=== PATIENT | female | born 1970 | race Caucasian/White ===

== ENCOUNTER 2022-03-05 14:06 | Outpatient (CLI) | payer OTHER, SELFPAY | END 2022-03-05 14:07 | disposition home or self-care (01) | LOC: NFLDREF 03-16 10:19 | PROVIDERS: Visit Provider Family Medicine | DX: L40.9 Psoriasis, unspecified (principal); Z79.899 Other long term (current) drug therapy | CPT/HCPCS: 87086; 87186 ==

== ENCOUNTER 2022-06-22 07:45 | Outpatient (CLI) | payer OTHER, SELFPAY | END 2022-06-22 07:46 | disposition home or self-care (01) | LOC: NFLDREF 12:18 | PROVIDERS: PCP Family Medicine; Referring Provider Family Medicine; Visit Provider Family Medicine | DX: E78.5 Hyperlipidemia, unspecified (principal); R73.03 Prediabetes | CPT/HCPCS: 80053; 80061 ==

== ENCOUNTER 2023-07-13 07:38 | Outpatient (CLI) | payer BC, SELFPAY | END 2023-07-13 07:39 | disposition home or self-care (01) | LOC: NFLDREF 07-15 07:38 | PROVIDERS: PCP Family Medicine; Referring Provider Family Medicine; Visit Provider Family Medicine | DX: K76.0 Fatty (change of) liver, not elsewhere classified (principal); E78.5 Hyperlipidemia, unspecified; R73.03 Prediabetes | CPT/HCPCS: 80053; 80061 ==

== ENCOUNTER 2023-09-15 12:05 | Outpatient (CLI) | payer OTHER, SELFPAY | END 2023-09-15 12:06 | disposition home or self-care (01) | LOC: NFLDREF 12:06 | PROVIDERS: PCP Family Medicine; Visit Provider Family Medicine | DX: R76.12 Nonspecific reaction to cell mediated immunity measurement of gamma interferon antigen response without active tuberculosis (principal); R73.03 Prediabetes | CPT/HCPCS: 80053; 80061 ==

== ENCOUNTER 2023-11-17 08:44 | Outpatient (CLI) | payer OTHER, SELFPAY ==
--- NOTE | 2023-11-17 10:03 | W.ANESCHARGE ---
Anesthesia Charges Start Date/Time Anesthesia Start Date: 11/17/23 Anesthesia Start Time: 09:37 Stop Date/Time Anesthesia Stop Date: 11/17/23 Anesthesia Stop Time: 10:04
--- NOTE | 2023-11-17 10:08 | W.ANESCHARGE ---
Anesthesia Charges Start Date/Time Anesthesia Start Date: 11/17/23 Anesthesia Start Time: 09:37 Stop Date/Time Anesthesia Stop Date: 11/17/23 Anesthesia Stop Time: 10:04
== END 2023-11-17 08:45 | disposition home or self-care (01) ==
LOC: OP CLINIC 08:44
PROVIDERS: PCP Family Medicine; Visit Provider Surgery
DX: Z12.11 Encounter for screening for malignant neoplasm of colon (principal); Z86.010 Personal history of colon polyps
CPT/HCPCS: 00812; 45378; J2704

== ENCOUNTER 2023-12-23 14:52 | Outpatient (CLI) | payer OTHER, SELFPAY ==
--- NOTE | 2023-12-23 15:00 | CRLHL7_ITS ---
For Patients: As a result of the Century Cures Act, medical imaging exams and procedure reports are released immediately into your electronic medical record. You may view this report before your referring provider. If you have questions, please contact your health care provider. BILATERAL SCREENING MAMMOGRAM WITH COMPUTER-AIDED DETECTION AND TOMOSYNTHESIS TECHNIQUE: CC and MLO views were obtained. These mammographic images have been obtained using full-field digital technique. These mammographic images were interpreted with the benefit of computer-aided detection. Breast Tomosynthesis was used in this interpretation. COMPARISON FILM: 07/20/21, 04/05/18, 10/05/16. FINDINGS: There are scattered areas of fibroglandular density. IMPRESSION: There is no radiographic evidence for malignancy. ASSESSMENT: BI-RADS Category 1: Negative RECOMMENDATION: Routine screening mammogram in 1 year. A lay language report of this examination will be provided to the patient. Long Foster M.D. Diagnostic Radiologist [email or web address] SP/Dictated by: Long Foster MD @ 12/26/2023 10:43:00 AM (Electronically Signed)
== END 2023-12-23 14:53 | disposition home or self-care (01) ==
LOC: MAMMO 14:52
PROVIDERS: PCP Family Medicine; Visit Provider Family Medicine
DX: Z12.31 Encounter for screening mammogram for malignant neoplasm of breast (principal)
CPT/HCPCS: 77063; 77067

== ENCOUNTER 2024-08-15 07:42 | Outpatient (CLI) | payer OTHER, SELFPAY | END 2024-08-15 07:43 | disposition home or self-care (01) | LOC: NFLDREF 08-22 03:28 | PROVIDERS: PCP Family Medicine; Referring Provider Family Medicine; Visit Provider Family Medicine | DX: E78.5 Hyperlipidemia, unspecified (principal); K76.0 Fatty (change of) liver, not elsewhere classified; R73.03 Prediabetes | CPT/HCPCS: 80053; 80061 ==

== ENCOUNTER 2024-08-21 12:53 | Outpatient (CLI) | payer OTHER, SELFPAY ==
[2024-08-24 02:34] LABS: HPV Source Cervical/Vag; HPV, High Risk by TMA Not Detected
== END 2024-08-21 12:54 | disposition home or self-care (01) ==
PROVIDERS: PCP Family Medicine; Visit Provider Family Medicine
DX: N30.00 Acute cystitis without hematuria (principal); B96.89 Other specified bacterial agents as the cause of diseases classified elsewhere; Z11.51 Encounter for screening for human papillomavirus (HPV); Z12.4 Encounter for screening for malignant neoplasm of cervix
CPT/HCPCS: 87086; 87624; 87625; 88141; 88142

== ENCOUNTER 2024-11-16 14:53 | Outpatient (CLI) | payer OTHER, SELFPAY | END 2024-11-16 14:54 | disposition home or self-care (01) | LOC: NFLDREF 14:54 | PROVIDERS: PCP Family Medicine; Visit Provider Family Medicine | DX: R82.90 Unspecified abnormal findings in urine (principal) | CPT/HCPCS: 87086 ==

== ENCOUNTER 2024-11-19 06:08 | Day surgery (SDC) | payer OTHER, SELFPAY ==
[2024-11-19] VITALS (24 sets, daily range): BP systolic 87–136; BP diastolic 55–85; PULSE 54–84; RESP 11–18; TEMP 36.2–37.1; O2SAT 91–100; BMI 29.9
[2024-11-19] MEDS: LACTATED RINGERS 1000 ML 1,000 ML 100 ML IV ×2 (06:38→08:45)
[2024-11-19] MEDS: ACETAMINOPHEN 500 MG TABLET 1000 MG PO (06:38)
[2024-11-19] MEDS: SODIUM CHLORIDE 0.9 % (FLUSH) 10 ML SYRINGE IVF (06:38)
[2024-11-19] MEDS: OXYCODONE (CR) 10 MG TAB.ER.12H PO (06:38)
--- NOTE | 2024-11-19 07:00 | W.PM.H&PU ---
History & Physical Update History & Physical Update H&P Reviewed and patient assessed: No changes noted
[2024-11-19] MEDS: MIDAZOLAM HCL 1 MG/ML inj IVP (07:15)
--- NOTE | 2024-11-19 07:15 | CRLHL7_ITS ---
For Patients: As a result of the Cures Act, medical imaging exams and procedure reports are released immediately into your electronic medical record. You may view this report before your referring provider. If you have questions, please contact your health care provider. Indication: Hip replacement surgery Technique: AP hip fluoroscopic image. Fluoroscopy time 61.0 seconds. Findings/Impression: Hardware from a right total hip arthroplasty is in satisfactory position. Dictated by Long Foster MD @ 11/19/2024 10:19:00 AM (Electronically Signed)
--- NOTE | 2024-11-19 07:15 | SUR.PREOP ---
TIME?OUT:?05 PT/RN/MDA?VERIFICATION?OF?SURGICAL?SITE,?PROCEDURE,?AND?CONSENT OBTAINED?PRIOR?TO?INVASIVE?PROCEDURE.
[2024-11-19] MEDS: TRANEXAMIC ACID 100 MG/ML INJ 1000 MG IV (07:40)
--- NOTE | 2024-11-19 07:54 | P.ANES_ITS ---
Anesthesia Charges Start Date/Time Anesthesia Start Date: 11/19/24 Anesthesia Start Time: 07:15 Stop Date/Time Anesthesia Stop Date: 11/19/24 Anesthesia Stop Time: 09:53 Coding CPT Codes CPT Codes: ANESTH HIP ARTHROPLASTY - 99279 ([id number]) P2 - PATIENT W/MILD SYST DISEASE, QK - MUCKER OPERATOR 2-4 CNCRNT ANES PROC, QX - INJECTION MAINTENANCE TECHNICIAN SVC W/ MD MED DIRECTION
--- NOTE | 2024-11-19 07:54 | W.ANESCHARGE ---
Anesthesia Charges Start Date/Time Anesthesia Start Date: 11/19/24 Anesthesia Start Time: 07:15 Stop Date/Time Anesthesia Stop Date: 11/19/24 Anesthesia Stop Time: 09:53 Coding CPT Codes CPT Codes: ANESTH HIP ARTHROPLASTY - 09200 ([id number]) P2 - PATIENT W/MILD SYST DISEASE, QK - DOUBLE SPINDLE SHAPER OPERATOR 2-4 CNCRNT ANES PROC, QX - FIRE SERVICES PLUMBER SVC W/ MD MED DIRECTION
--- NOTE | 2024-11-19 07:55 | P.ANES_ITS ---
Anesthesia Charges Start Date/Time Anesthesia Start Date: 11/19/24 Anesthesia Start Time: 07:15 Stop Date/Time Anesthesia Stop Date: 11/19/24 Anesthesia Stop Time: 09:53 Coding CPT Codes CPT Codes: ANESTH HIP ARTHROPLASTY - 07462 ([id number]) P2 - PATIENT W/MILD SYST DISEASE, QK - CONTRACTS SPECIALIST 2-4 CNCRNT ANES PROC, QX - RATE ANALYST SVC W/ MD MED DIRECTION
--- NOTE | 2024-11-19 07:55 | W.PM.NB ---
Nerve Block Nerve Block Time Seen by Provider: 07:10 Date Seen: 11/19/24 Type of block requested by surgeon for post-operative analgesia: YULISSA/LFCN Side: right Time out performed: Yes Verification of patient name: Yes Verification of date of : Yes Site marking: site marked Name of person performing procedure: Rainer Continuous monitoring Was continuous monitoring of O2 sat, B/P, manager monitoring, recorded every 15 minutes?: Yes Procedure Checklist: sterile prep, needles and gloves Ultrasound guided. Images saved: Yes Medications given in 5ml increments after negative aspiration: Ropivicaine %: 0.5 mL: 30 Needle gauge: 20 Precedex (mcg): 25 Patient tolerated procedure well: Yes Additional comments: Needle noted below psoas tendon needle noted adjacent to LFCN Block Charges Block Charge (with Pro Fee): Other Periph Nerve Block Use of Ultrasound Machine for Block: Yes- US Guidance/pain block
--- NOTE | 2024-11-19 07:55 | W.ANESCHARGE ---
Anesthesia Charges Start Date/Time Anesthesia Start Date: 11/19/24 Anesthesia Start Time: 07:15 Stop Date/Time Anesthesia Stop Date: 11/19/24 Anesthesia Stop Time: 09:53 Coding CPT Codes CPT Codes: ANESTH HIP ARTHROPLASTY - 59678 ([id number]) P2 - PATIENT W/MILD SYST DISEASE, QK - AUTOMOTIVE EXHAUST EMISSIONS TECHNICIAN 2-4 CNCRNT ANES PROC, QX - INSPECTOR CLIP ON SUNGLASSES SVC W/ MD MED DIRECTION
--- NOTE | 2024-11-19 09:08 | P.ORPRC_ITS ---
Procedure Note Date of procedure: 11/19/24 Procedure: PREOPERATIVE DIAGNOSIS: 1. Right hip osteoarthritis, severe, primary POSTOPERATIVE DIAGNOSIS: 1. Right hip osteoarthritis, severe, primary PROCEDURE: 1. Right total hip arthroplasty-anterior approach 2. 11743 - intraoperative fluoroscopy up to 1 hour. SURGEON: Ajit Scott MD. MASTER IN CHANCERY: James Simpson PA-C; JD Beach - Of note, a skilled behavioral modification assistant was critical for this case to aid in patient positioning, tissue retraction, limb manipulation/positioning, and closure. ANESTHESIA: Spinal anesthetic EBL: 300 mL IMPLANTS: DePuy J&J uncemented total hip [place] cup size 54, hole eliminator, +4 neutral liner Actis stem, standard offset, size 5 +12 mm ceramic 36 mm head COMPLICATIONS: None evident INDICATIONS: The patient is a pleasant 54-year-old female who has experienced severe right hip pain and difficulty bearing weight. Workup included x-rays which revealed severe osteoarthrosis in the hip. Given the deformity, the dysfunction, and the pain, as well as the failure of nonoperative management, recommendation was made for surgery. FINDINGS: Full-thickness chondral loss diffusely throughout the femoral head acetabulum. Osteophytes on the femoral head/neck junction and perimeter of the acetabulum. Moderate effusion upon entering the joint. DESCRIPTION OF PROCEDURE: Following a thorough discussion of risks, benefits, and alternatives consent was obtained and the right hip was marked. The patient was brought to the operating room and placed supine on the operating table. Induction of anesthesia was undertaken. 2 g IV Ancef and 1 g tranexamic acid was administered within 1 hr of incision preoperatively. Proper time-out was performed identifying proper patient, site, procedure. The operative extremity was prepped and draped in the appropriate sterile fashion using ChloraPrep after the patient was positioned on the [place] table with head in neutral alignment and all bony prominences well padded. C-arm fluoroscopic imaging was utilized to confirm proper pelvis rotation and position, and to get true AP films of both the contralateral left, and the affected right hip. This is for comparison. A longitudinal incision was made starting approximately 1 cm distal to the ASIS, and 2-3 cm lateral. The incision was extended distally aiming toward the fibular head. Sharp incision through skin and bovie cautery through the subcutaneous tissue allowed identification of the TFL fascia. This was sharply divided, and the fascia bluntly released from the muscle fibers as we dissected medial. Upon coming to the medial border, we were able to retract the TFL late rally, and penetrated the deeper fascia and identify the crossing circumflex vessels. These were ligated/cauterized. The rectus was elevated from the capsule, and retractors placed laterally and medially along the femoral neck to help with visualization of the capsule. We then performed an inverted T capsulotomy. The capsule was tagged for later repair. Retractors were placed inside the capsule. The femoral neck was visualized after releasing medially down to the lesser trochanter, along the saddle laterally, and up onto the acetabulum. The femoral neck cut was made in line with our preoperative templating. The head was removed in a single piece, and sized. We turned our attention to acetabular preparation. Initially, the labrum was resected from around the perimeter, the pulvinar was excised, allowing us to visualize the false wall. We started the reaming with a 43 mm reamer. This was medialized down to the true wall. We then enlarged our reamers sequentially up to one size less than the selected cup size. We trialed at the same size and found it to have an excellent fit. The selected cup was then opened, inserted, and impacted in line with the goal of 40? of abduction, and 20-25? of anteversion. This was confirmed on C-arm fluoroscopic imaging to be in the appropriate/goal position. Once the cup was placed we placed a hole eliminator and a liner consistent with preop planning. Attention was turned to the femoral preparation. The limb was extended, externally rotated, and adducted. The posteromedial capsule was released, as retractors were placed allowing excellent access to the proximal femur. Initially a box estimator was followed by canal finder followed by various broaches. We broached sequentially up to the size noted above, found it to have excellent rotational control, and trialing various heads and necks, revealed that appropriate neck offset, and the above noted head size provided the greatest stability, and mandaeism of length, and offset. C-arm fluoroscopic imaging confirmed position of the stem, as well as leg lengths, which were compared with the pre procedure all fluoroscopic images. Trial implants were removed, the real femoral stem inserted, as was the appropriate head. After reducing, the leg was placed through range of motion and stability was confirmed anterior, posterior, and lateral. A 3 min Betadine soak was then performed, and thorough irrigation with normal saline followed. Closure of the capsule was performed with #1 PDS. Bleeding was confirmed to be controlled at this stage, and the TFL fascia was closed with #0 strata fix. Subcutaneous, and subcuticular closure was performed with 2-0 Stratafix and 4-0 Stratafix, respectively. Dressings were applied, and the patient was awoken from anesthesia and transferred the PACU in stable condition. A skilled behavioral modification assistant was critical for this case to aid in patient positioning, tissue retraction, acetabular and proximal femoral exposure, limb manipulation/positioning, dislocation/relocation, patient safety, and closure. PLAN: 1. Weight bear as tolerated operative extremity. 2. 23 hr perioperative antibiotics. 3. Ice. 4. PT/OT consults for ambulation assistance/mobility education. 5. Social work consult for discharge planning. 6. DVT prophylaxis with at SCDs and Xarelto x5 days followed by aspirin for a total of 1 month.
--- NOTE | 2024-11-19 09:52 | CRLHL7_ITS ---
For Patients: As a result of the Cures Act, medical imaging exams and procedure reports are released immediately into your electronic medical record. You may view this report before your referring provider. If you have questions, please contact your health care provider. Indication: Postop Technique: AP hip centered pelvis and lateral view right hip Findings/Impression: Hardware from a right total hip arthroplasty is in satisfactory position. Bone alignment is normal. No sign of acute fracture. Postop changes are within normal limits. Dictated by Long Foster MD @ 11/19/2024 10:30:36 AM (Electronically Signed)
[2024-11-19] MEDS: LACTATED RINGERS 1000 ML 1,000 ML 500 ML IV (10:51)
[2024-11-19] MEDS: ACETAMINOPHEN 325 MG TABLET PO (13:21)
--- NOTE | 2024-11-19 13:59 | SUR.PHASEII ---
Attempted to get patient to ambulate to the bathroom with walker, gait belt, and assist of 1. She was unable to bear weight comfortably, so she requested to lay back down. Second attempt at 1345 was successful. She did say she felt a little shaky still, but was comfortable ambulating with a 2 person assist, gait belt, and walker. She was able to void at that time. OT scheduled to come at 1400.
== END 2024-11-19 15:10 | disposition home or self-care (01) ==
LOC: OR 06:08
PROVIDERS: PCP Family Medicine; Visit Provider Orthopaedic Surgery Sports Medicine
PROC: (CPT 27130; principal; 2024-11-19 07:15)
DX: M16.11 Unilateral primary osteoarthritis, right hip (principal); G89.18 Other acute postprocedural pain; R73.03 Prediabetes; K76.0 Fatty (change of) liver, not elsewhere classified; E66.9 Obesity, unspecified; F17.210 Nicotine dependence, cigarettes, uncomplicated; E78.5 Hyperlipidemia, unspecified; L40.0 Psoriasis vulgaris; Z79.1 Long term (current) use of non-steroidal anti-inflammatories (NSAID); Z79.620 Long term (current) use of immunosuppressive biologic
CPT/HCPCS: 27130; 01214; 64450; 73501; 76000; 76942; 86850; 86900; 86901; 97110; 97116; 97161; 97165; 97535; A9270; C1776; J0690; J1100; J2250; J2371; J2405; J2704; J2795; J3010; J7120

== ENCOUNTER 2024-12-14 11:15 | Outpatient (RCR) | payer OTHER, SELFPAY | END 2024-12-14 12:13 | disposition home or self-care (01) | PROVIDERS: PCP Family Medicine; Visit Provider Orthopaedic Surgery Sports Medicine | DX: Z47.1 Aftercare following joint replacement surgery (principal); Z96.641 Presence of right artificial hip joint; Z51.89 Encounter for other specified aftercare | CPT/HCPCS: 97110; 97161 ==